=== PATIENT | male | born 1950 | race Caucasian/White ===

== ENCOUNTER 2018-01-17 09:06 | Day surgery (SDC) | payer OTHER ==
[2018-01-17] MEDS ORDERED: ceFAZolin 2 GM/DEXTROSE 100 ML IV ONE (09:17)
[2018-01-17] MEDS ORDERED: LR 1,000 ML IV ONE (09:18)
[2018-01-17] MEDS ORDERED: LIDOCAINE 1% 2 ML INJ ID PRN (09:18)
[2018-01-17] MEDS ORDERED: CLINDAMYCIN 900 MG/DEXTROSE 50 ML IV ONE (09:45)
--- NOTE | 2018-01-17 09:45 | PDHPUP ---
History & Physical Update H&P update statement: This history and physical update is based on an assessment of the patient which was completed after admission or registration (within 24 hours), but prior to the surgery/procedure. H&P update: H&P reviewed & patient examined, no change in patient's condition since H&P completed
[2018-01-17] MEDS ORDERED: MIDAZOLAM 2 MG/2 ML VIAL IVP ONE (11:02)
--- NOTE | 2018-01-17 11:02 | PDANEPAE ---
ANE History of Present Illness ventral hernia ANE Past Medical History - Cardiovascular History Hx Hypertension: Yes Hx Arrhythmias: No Hx Chest Pain: No Hx Coronary Artery / Peripheral Vascular Disease: Yes Cardiovascular History Comment: PVD - Pulmonary History Hx COPD: No Hx Asthma/Reactive Airway Disease: No Hx Recent Upper Respiratory Infection: No Hx Oxygen in Use at Home: No Hx Sleep Apnea: No Sleep Apnea Screening Result - Last Documented: Positive Pulmonary History Comment: MADALYN, not using CPAP - Neurologic History Hx Cerebrovascular Accident: No Hx Seizures: No Hx Dementia: No - Endocrine History Hx Diabetes: Yes Obesity: yes Endocrine History Comment: pre-diabetic, on Metformin. Last hgb A1C ~6 - Renal History Hx Renal Disorders: No - Liver History Hx Hepatic Disorders: No - Neurological & Psychiatric Hx Hx Neurological and Psychiatric Disorders: No - Cancer History Hx Cancer: No - Congenital Disorder History Hx Congenital Disorders: No - GI History Hx Gastrointestinal Disorders: No - Other Health History Other Health History: none - Chronic Pain History Chronic Pain: No - Surgical History Prior Surgeries: none ANE Review of Systems Review of Systems: - Exercise capacity METS (RN): 4 METS ANE Patient History - Allergies Allergies/Adverse Reactions: Penicillins Allergy (Verified 01/05/18 12:40) Anaphylaxis - Home Medications Home medications: home medication list seen and reviewed Home Medications: Fenofibrate 01/05/18 [Last Taken 01/16/18] Metformin HCl 01/05/18 [Last Taken 01/16/18] Valsartan 01/05/18 [Last Taken 01/16/18] Vitamin B12 01/05/18 [Last Taken 01/14/18] Vitamin D2 (*) 01/05/18 [Last Taken 01/11/18] - NPO status NPO Since - Liquids (Date): 01/16/18 NPO Since - Liquids (Time): 23:00 NPO Since - Solids (Date): 01/16/18 NPO Since - Solids (Time): 19:00 - Anes Hx Anes Hx: no prior problems - Smoking Hx Smoking Status: Former smoker - Family Anes Hx Family Hx Anesthesia Complications: none ANE Labs/Vital Signs - Vital Signs Blood Pressure: 144/88 Heart Rate: 72 Respiratory Rate: 16 O2 Sat (%): 94 Height: 185.42 cm Weight: 122.47 kg ANE Physical Exam - Airway Neck exam: decreased ROM Mallampati Score: Class 3 Mouth exam: normal dental/mouth exam - Pulmonary Pulmonary: no respiratory distress, no rales or rhonchi - Cardiovascular Cardiovascular: regular rate and rhythym - ASA Status ASA Status: III ANE Anesthesia Plan Anesthesia Plan: general endotracheal anesthesia
[2018-01-17] MEDS ORDERED: PROPOFOL 200 MG/20 ML VIAL ONE (11:05)
[2018-01-17] MEDS ORDERED: LIDOCAINE 2% 5 ML SDV ONE (11:05)
[2018-01-17] MEDS ORDERED: ROCURONIUM 50 MG/5 ML VIAL ONE ×2 (11:05→11:46)
[2018-01-17] MEDS ORDERED: fentaNYL 100 MCG/2 ML INJ ONE ×3 (11:05→12:48)
[2018-01-17] MEDS ORDERED: ONDANSETRON 4 MG/2 ML VIAL ONE ×2 (11:06→14:51)
[2018-01-17] MEDS ORDERED: NEOSTIGMINE METHYLSULFATE 5 MG/5 ML SYR ONE (11:06)
[2018-01-17] MEDS ORDERED: GLYCOPYRROLATE 0.2 MG/1 ML VIAL ONE ×2 (11:06)
[2018-01-17] MEDS ORDERED: BUPIVACAINE 0.25% 30 ML SDV ONE (11:25)
[2018-01-17] MEDS ORDERED: KETOROLAC 30 MG/1 ML SDV ONE (11:37)
[2018-01-17] MEDS ORDERED: PROMETHAZINE HCL 25 MG/ML INJ IVP PRN (13:13)
[2018-01-17] MEDS ORDERED: NALOXONE HCL 0.4 MG/ML INJ IVP PRN ×2 (13:13→13:48)
[2018-01-17] MEDS ORDERED: HYDROmorphONE/DILAUDID 1 MG/ML INJ IVP PRN (13:13)
[2018-01-17] MEDS ORDERED: fentaNYL 100 MCG/2 ML INJ IVP PRN (13:13)
[2018-01-17] MEDS ORDERED: ONDANSETRON 4 MG/2 ML VIAL IVP PRN (13:13)
--- NOTE | 2018-01-17 13:47 | POSTOPPROG ---
Post Op Note Date of Operation: 01/17/18 Surgeon: Ronny Davis Account Manager Relief: Lina San Anesthesiologist: Dr. Humphries Anesthesia: GET(General Endotracheal) Pre-op Diagnosis: VIH Post-op Diagnosis: Same, adhesions Procedure: Robotic Nafisa, VIHR Inf/Abcess present in the surg proc area at time of surgery?: No EBL: Minimal
[2018-01-17] MEDS ORDERED: LABETALOL HCL 5 MG/ML 20 ML MDV IVP PRN (13:48)
--- NOTE | 2018-01-17 13:51 | POSTANESTH ---
Post Anesthetic Evaluation Cardiovascular Status: Normal, Stable, Similar to Pre-Op Cond Respiratory Status: Normal, Stable Level of Consciousness/Mental Status: Can Participate in Eval Pain Control: Adequate, Prn Tx Ordered Nausea/Vomiting Control: Adequate, Prn Tx Ordered Complications Possibly Related to Anesthesia: None Noted
[2018-01-17] MEDS ORDERED: LABETALOL HCL 5 MG/ML 20 ML MDV ONE (13:55)
--- NOTE | 2018-01-17 14:37 | GOP ---
[f rep st] OPERATIVE REPORT DATE OF OPERATION: 01/17/2018 SURGEON: Francesco Davis MD ECOLOGICAL RISK ASSESSOR: Samantha San CFA, whose presence was requested by me and medically necessary for the saf e and timely completion of the case. ANESTHESIA: General endotracheal anesthesia. ANESTHESIOLOGIST: Dr. Humphries. PREOPERATIVE DIAGNOSIS: Recurrent ventral hernia. POSTOPERATIVE DIAGNOSIS: 1. Multiple adhesions. 2. Recurrent ventral hernia. PROCEDURE PERFORMED: 1. Robotic lysis of adhesions. 2. Robotic ventral hernia repair. FINDINGS: Patient had 3 separate defects with incarcerated omentum. Patient had multiple adhesions from prior surgery, as well as possible trauma. ESTIMATED BLOOD LOSS: 20 cc. INDICATIONS: 67-year-old male with a history of abdominal wall bulge. The patient had a prior repai r 40 years ago. Risks and benefits of procedure were discussed patient's family, their questions wer e answered, and they wish to proceed. DESCRIPTION OF PROCEDURE: Patient was in supine position. After induction of adequate general endot cortney anesthesia, the patient was prepped and draped in standard surgical fashion. 0.25% Marcaine was injected into the left lower quadrant for local anesthesia. An 8 mm incision was made with #15 blade and the abdominal wall was elevated. A Veress needle was in serted, and after noting proper pressures, the abdomen was insufflated with carbon dioxide. An 8 mm trocar was passed. The camera followed. There was no apparent damage from trocar placement. There were some adhesions immediately upon entering that were taken down bluntly. Two more ports were plac ed to facilitate this, both the 8 mm ports were placed under direct vision in the left side of the ab domen. The robot was then docked without difficulty. Using cautery and sharp dissection, the adhesions were carefully taken down. These adhesions were focused in the left upper quadrant, although there were multiple adhesions as well in the central abdomen. These mainly connected the omentum to the anterio r abdominal wall. After the adhesions were carefully lysed, the hernia, itself, was identified. The omentum was retrac susi in a [id number] fashion. The sac was dissected continually as this process continued. Remov ing all the omentum revealed 3 separate defects that were adjacent. The total distance between these was measured and this was approximately 9 cm. The width of the defects was approximately 3 cm. A 1 0 x 15 composite mesh was chosen. Prior to placing the mesh, the defects themselves were closed usin g 2-0 V-Loc in a running fashion. The mesh was inserted and drawn up using a prior placed 2-0 silk o n a Kareem needle. Once this was elevated to the anterior abdominal wall, it was sutured in place usi ng 3-0 V-Loc in a running fashion. This resulted in excellent closure and fixation of the mesh. The area was then carefully inspected. Good hemostasis was noted throughout. No other lesions were identified. Ports were then all withdrawn under direct vision. The pneumoperitoneum was allowed to escape. The robot had already been undocked, and the wounds were thoroughly irrigated. The skin at all sites closed with 4-0 Monocryl in a subcuticular stitch. The umbilicus was buttressed down with gauze and Tegaderm. The patient was then extubated and taken to the PACU in stable condition. COMPLICATIONS: None. DRAINS: None. /[id number]/MODL
[2018-01-17] MEDS ORDERED: OXYCODONE/APAP 5/325 TAB PO ONE ×2 (15:00→16:00)
[2018-01-17] MEDS ORDERED: OXYCODONE/APAP 5/325 TAB ONE (15:51)
[2018-01-17 16:57] VITALS: BP 158/89
== END 2018-01-17 17:10 | disposition home or self-care (01) ==
LOC: FSGY 09:06
PROVIDERS: ATTEND Surgery
PROC: 0WQF4ZZ Repair Abdominal Wall, Percutaneous Endoscopic Approach (ICD-10-PCS; principal; 2018-01-17 10:30)
PROC: 0WUF4JZ Supplement Abdominal Wall with Synthetic Substitute, Percutaneous Endoscopic Approach (ICD-10-PCS; principal; 2018-01-17 10:30)
PROC: 8E0W4CZ Robotic Assisted Procedure of Trunk Region, Percutaneous Endoscopic Approach (ICD-10-PCS; principal; 2018-01-17 10:30)
DX: K43.2 Incisional hernia without obstruction or gangrene (principal); E11.9 Type 2 diabetes mellitus without complications; I10 Essential (primary) hypertension
CPT/HCPCS: C1781; J1885; J2250; J2405; J2704; J2710; J3010